=== PATIENT | male | born 1970 | race Caucasian/White ===

== ENCOUNTER → 2016-12-09 | Outpatient (CLI) | payer BC ==
[~2016-12-09] MED LIST: BENTYL20 M1 PO; CELEXA PO; LOMOTIL WHITE2.5 M1 PO; PRILOSEC40 MG PO; [UNRECOGNIZED DRUG - REMARK]
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
== END | disposition home or self-care (01) ==
LOC: SCT 09:30
DX: Z47.89 Encounter for other orthopedic aftercare (principal); M19.072 Primary osteoarthritis, left ankle and foot
CPT/HCPCS: 73700